=== PATIENT | male | born 1940 | race Caucasian/White ===

== ENCOUNTER 2016-09-04 01:39 | Observation (INO) | payer OTHER ==
[~2016-09-04] VITALS: Ht 167.6 cm; Wt 90.7 kg
--- NOTE | 2016-09-04 02:10 | ED CARDIAC/CP/PALPITATIONS ---
History of Present Illness General Chief Complaint: Palpitations Stated Complaint: PALPITATIONS Source: patient Exam Limitations: no limitations Vital Signs & Intake/Output Vital Signs & Intake/Output Vital Signs Date Time Temp Pulse Resp B/P B/P Pulse O2 O2 Flow FiO2 Mean Ox Delivery Rate 09/04 0713 98.8 71 18 125/81 96 09/04 0244 97.9 69 16 102/68 96 Nasal 2.0L Cannula 09/04 0227 97 Nasal 2.0L Cannula 09/04 0207 71 16 115/82 99 Nasal 2.0L Cannula 09/04 0205 160 09/04 0202 71 115/82 09/04 0158 165 16 132/88 96 Room Air 09/04 0140 99 Nasal 2.0L Cannula Allergies Coded Allergies: No Known Allergies (09/04/16) Triage Note: 75YO MALE PRESENTS W/CO PALPITATIONS SINCE 1600. DENIES ANY CP Triage Nurses Notes Reviewed? yes HPI: Patient presents for evaluation of intermittent rapid heart beat that has been going on for a number of months now. Patient states that the symptoms seem to be becoming more frequent and longer lasting. He states he typically simply goes to sleep and when he wakes up the rapid heartbeat is gone. Today the rapid heartbeat began about 4 PM this afternoon. Patient states he was at rest at time of onset. Seemed to resolve the rapid heartbeat. Past History Travel History Traveled to [place] past 21 day No Medical History Any Pertinent Medical History? see below for history Surgical History Surgical History: non-contributory Family History Hx Contributory? No Review of Systems Review of Systems Constitutional: Reports: no symptoms. EENTM: Reports: no symptoms. Respiratory: Reports: no symptoms. Cardiovascular: Reports: see HPI. GI: Reports: no symptoms. Genitourinary: Reports: no symptoms. Musculoskeletal: Reports: no symptoms. Skin: Reports: no symptoms. Neurological/Psychological: Reports: no symptoms. Hematologic/Endocrine: Reports: no symptoms. Immunologic/Allergic: Reports: no symptoms. All Other Systems: Reviewed and Negative Physical Exam Physical Exam Cardiovascular: SEE BELOW Comments: Gen.: Well-nourished, well-developed, no acute respiratory distress. Head: Normocephalic, atraumatic. Eyes: Normal inspection bilaterally Ears: Normal inspection bilaterally Nose: Normal inspection Throat/mouth : Moist mucosa Neck: Supple, full range of motion, no goiter Heart: Rapid Regular rate and rhythm, no murmurs rubs or gallops Lungs: Clear to auscultation bilaterally with normal air entry Chest: Nontender Back: Normal range of motion Abdomen: Soft, nontender, nondistended, normal bowel sounds Extremities: Normal range of motion grossly, equal radial pulses, no cyanosis clubbing or edema Neurologic: Cranial nerves grossly intact, speech is clear Skin: warm and dry Psychiatric: Calm, cooperative, no apparent delusions or hallucinations Core Measures ACS in differential dx? Yes ASA ordered for poss ACS? Yes-ordered Severe Sepsis Present: No Septic Shock Present: No Progress Differential Diagnosis: ELECTROLYTE ABNORMALITY, HYPOMAGNESEMIA, ACUTE mi/ACUTE CORONARY SYNDROME, HEART VALVE DISEASE Plan of Care: Orders Procedure Date/time Status Heart Healthy Diet 09/[address] in observation 09/04 07 Active Misc Message 09/04 0744 Active ED Holding Orders 09/04 0744 Active Vital Signs 09/04 0744 Active Code Status 09/04 0744 Active TROPONIN LEVEL 09/04 0630 Complete EKG 09/04 0630 Active THYROID STIMULATING HORMONE 09/04 0209 Complete TROPONIN LEVEL 09/04 0209 Complete MAGNESIUM 09/04 0209 Complete CBC WITHOUT DIFFERENTIAL 09/04 0209 Complete BASIC METABOLIC PANEL 09/04 0209 Complete EKG 09/04 0143 Active Current Medications Sig/Kboi Start time Last Medication Dose Stop Time Status Admin Aspirin 81 MG ONCE ONE 09/04 0745 UNVr (Aspirin) 09/04 0746 Laboratory Tests 09/04/16 0634: Troponin I 0.06 09/04/16 0220: Anion Gap 14, Estimated GFR 54 L, BUN/Creatinine Ratio 20.0, Glucose 119 H, Calcium 9.6, Magnesium 1.9, Troponin I 0.04, TSH 2.030, CBC w Diff NO MAN DIFF REQ, RBC 5.17, MCV 89.9, MCH 30.1, RDW 14.6 H, MPV 8.4, Gran % 65.7, Lymphocytes % 22.5, Monocytes % 8.9, Eosinophils % 2.5, Basophils % 0.4, Absolute Granulocytes 7.9 H, Absolute Lymphocytes 2.7, Absolute Monocytes 1.1 H, Absolute Eosinophils 0.3, Absolute Basophils 0, PUBS MCHC 33.5 Initial ED EKG: rate (160), SVT Repeat EKG: changed (NSR) Comments: 09/04/2016 3:15:15 AM Husam was treated with 2 individual doses of adenosine 6 mg. The initial dose broke the SVT into a normal sinus rhythm but it returned within seconds. A second dose of adenosine do not seem to be effective until 2- 3 minutes later when the patient broke into a normal sinus rhythm. He then went in and out of an SVT over the next few minutes so a dose of Lopressor 5 mg IV was administered. He has been in a sinus rhythm since. 09/04/2016 3:26:07 AM patient's case discussed with Dr. Ohara who feels that if the patient has a normal repeat EKG and troponin that he could be placed on Lopressor 25 mg P0 twice a day and follow-up in the office. 09/04/2016 7:39:51 AM Husam's repeat EKG shows flattening of the T waves laterally and his repeat troponin is now 0.06 (prior was 0.04). I have discussed this case with Dr. Ohara again who feels it would be prudent to place this patient in observation for additional EKGs and troponin determinations along with additional testing. Patient agrees. Departure Departure Disposition: STILL A PATIENT Condition: Stable Clinical Impression Primary Impression: SVT (supraventricular tachycardia) Secondary Impressions: Acute electrocardiogram changes Referrals: ABBI WALKER,JUDE Kaminski (PCP/Family) Departure Forms: Customer Survey General Discharge Information Observation Note Spoke With: LESLY WALKER PhD,HEBERT Villa Physician Advisor Notified: HUBER WALKER,SHANNAN Levin Place Patient In: Non-ED OBS Care Area Rationale for Observation: My rational for observation is as follows patient presented in an SVT that was refractory to adenosine. He has been treated with IV Lopressor with stabilization of his heart rate and maintenance of normal sinus rhythm. His most recent EKG shows flattening of the T waves laterally and his troponin, although still within the normal range, has increased. I feel this patient is at risk of acute coronary syndrome or valve disease. Given his advanced age and medical comorbidities I do not feel he is a good candidate for outpatient management at this time. I feel he is still at risk of intermittent SVT that could cause hypotension or chest pain I feel the compliance with outpatient treatment could also provoke SVT. He should have serial troponins and EKGs and echocardiogram should be considered along with cardiac catheterization and stress testing. Critical Care Note Critical Care Note Critical Care Time: 30-74 min
[2016-09-04 02:29] LABS: ABSOLUTE BASOPHIL COUNT 0 /CUMM (0.0-0.2); ABSOLUTE EOSINOPHIL COUNT 0.3 /CUMM (0.0-0.7); ABSOLUTE GRANULOCYTE CT 7.9 /CUMM (1.4-6.5); ABSOLUTE LYMPH COUNT 2.7 /CUMM (1.2-3.4); ABSOLUTE MONOCYTE COUNT 1.1 /CUMM (0.10-0.60); BASOPHIL % 0.4 % (0.0-2.0); EOSINOPHIL % 2.5 % (0-5); GRANULOCYTE % 65.7 % (42.2-75.2); HEMATOCRIT 46.5 % (42-52); MEAN CORPUSCULAR HGB 30.1 PG (27.0-31.0); MEAN CORPUSCULAR HGB CONC 33.5 G/DL (33.0-37.0); MEAN CORPUSCULAR VOLUME 89.9 FL (80.0-94.0); MEAN PLATELET VOLUME 8.4 FL (7.4-10.4); PLATELET COUNT 216 /CUMM (130-400); RBC DISTRIBUTION WIDTH 14.6 % (11.5-14.5); RED BLOOD CELL CT 5.17 /CUMM (4.70-6.10)
--- NOTE | 2016-09-04 03:34 | RADIOLOGY REPORT ---
EXAMINATION: XR PORTABLE CHEST CLINICAL INFORMATION: SVT COMPARISON: None TECHNIQUE: Portable frontal view of the chest was obtained. FINDINGS: The lungs are hypoinflated, which limits evaluation. No definite consolidation is seen. No evidence of pneumothorax, pleural effusion, or overt pulmonary edema. Cardiac size appears near the upper limits of normal though may be accentuated by low lung volumes. No acute osseous findings are seen. IMPRESSION: Cardiac size appears near the upper limits of normal, though may be accentuated by low lung volumes. No acute pulmonary findings identified.
[2016-09-04] MEDS ORDERED: POTASSIUM CHLO20 ME2 PO (08:33)
[2016-09-04] MEDS ORDERED: AMLODIPINE BESY10 M1 PO (08:34)
[2016-09-04] MEDS ORDERED: LISINOPRIL-HCT1 EAC1 PO (08:34)
[2016-09-04] MEDS ORDERED: FAMOTIDINE20 M1 PO (08:34)
[2016-09-04] MEDS ORDERED: TAMSULOSIN HCL0.4 M1 PO (08:35)
[2016-09-04] MEDS ORDERED: DAILY MULTIPLE1 EACH PO (08:35)
[2016-09-04] MEDS ORDERED: OMEGA 3-6-9 11200 MG PO (08:35)
--- NOTE | 2016-09-04 08:51 | History & Physical ---
General Information and HPI MD Statement: I have seen and personally examined TOYA BERMUDEZ and documented this H&P. The patient is a 75 year old M who presented with a patient stated chief complaint of [palpitations]. Source of Information: patient Exam Limitations: no limitations History of Present Illness: 75-year-old male with past medical history of HTN, HLP, BPH, prosctate cancer scheduled to undergo radiation tx on Mon09/07/16 presents to the ED with chief complaints of palpitations. According to the patient he has been experiencing intermittent episodes of palpitations his entire life and has been owrked up in the past, with echo's, Holter moniters, with work-up that has been unrevealing. States that these episodes usually occur once or twice a year and last for a few minutes, however at around 4:00pm yesrterday he was getting dressed when he felt palpitations, which continued throughout and so he decided to come to the ER. Denies fevers, chills, CP, nausea, vomiting, diaphoresis, but endorses feeling lightheaded. Denies LOC, seizure like activity, SOB, orthopnea, recent change in his BP medications, or changes in diet. Denies any swelling in lower extremities. Denies any alcohol use, and coes not smoke or do any recreational drugs. His review of systems is unremarkable. Denies any hsitory of early cardiac in the family. Of note he was diagnosed with prostate cancer about 3-4 years ago,a nd is being followed up by oncolgist at [facility]. States thta he had a biospy doen about 2 weeks ago, which was concerning a nd so he is scheduled to undergo radiation traetment on Mon09/07/[address] Live? at [facility]. F/U with Dr. Mario who is his urologist. Allergies/Medications Allergies: Coded Allergies: No Known Allergies (09/04/16) Home Med list Amlodipine Besylate 10 MG TABLET 1 TAB PO DAILY HEART (Reported) Famotidine 20 MG TABLET 1 TAB PO BID GI (Reported) Fish Oil/Borage/Flax/Om3,6,9#1 ([place] 3-6-9 1,200 MG Softgel) 1,200 MG CAPSULE 1 CAP PO DAILY SUPPLEMENT (Reported) Lisinopril/Hydrochlorothiazide (Lisinopril-Hctz 20-25 MG Tab) 20 MG-25 MG TABLET 1 TAB PO DAILY HEART (Reported) Multivitamin (Daily Multiple Vitamin) 1 EACH TABLET 1 TAB PO DAILY VITAMIN SUPPORT (Reported) Potassium Chloride 20 MEQ TAB.ER.PRT 1 TAB PO BID SUPPLEMENT (Reported) Tamsulosin HCl 0.4 MG CAP.ER.24H 1 CAP PO QPM PROSTATE (Reported) Past History Travel History Traveled to [place] past 21 day No Medical History Neurological: NONE EENT: NONE Cardiovascular: hypertension, hyperlipidemia Respiratory: NONE Gastrointestinal: NONE Hepatic: NONE Renal: NONE Musculoskeletal: NONE Psychiatric: NONE Endocrine: NONE Blood Disorders: NONE Cancer(s): prostate cancer Isolation History: Standard Surgical History Surgical History: non-contributory Past Family/Social History Family History Relations & Conditions if any FATHER FH: cancer SISTER FH: cancer MOTHER Relation not specified for: Cervical cancer Psychosocial History Smoking Status: Never Smoked ETOH Use: denies use Illicit Drug Use: denies illicit drug use Functional Ability ADLs Independent: dressing, eating, toileting, bathing. Ambulation: independent Review of Systems Review of Systems Constitutional: Reports: diaphoresis. Denies: chills, fever, weakness. EENTM: Denies: visual changes. Cardiovascular: Reports: palpitations. Denies: chest pain, orthopena, peripheral edema, syncope. Respiratory: Denies: cough, orthopnea, short of breath, sputum production, wheezing. GI: Denies: abdominal pain, diarrhea, nausea, vomiting. Genitourinary: Reports: frequency. Denies: dysuria, pain. Musculoskeletal: Reports: no symptoms. Neurological/Psychological: Denies: headache, numbness, tingling, tremors, unable to move lower ext, unable to move upper ext, weakness. Exam & Diagnostic Data Last 24 Hrs of Vital Signs/I&O Vital Signs Date Time Temp Pulse Resp B/P B/P Pulse O2 O2 Flow FiO2 Mean Ox Delivery Rate 09/04 0713 98.8 71 18 125/81 96 09/04 0244 97.9 69 16 102/68 96 Nasal 2.0L Cannula 09/04 0227 97 Nasal 2.0L Cannula 09/04 206 71 16 115/82 99 Nasal 2.0L Cannula 09/04 0205 160 09/04 0202 71 115/82 09/04 0158 165 16 132/88 96 Room Air 09/04 0140 99 Nasal 2.0L Cannula Intake & Output 09/04 1600 09/04 0800 09/04 0000 Intake Total 1000 Output Total Balance 1000 Intake, IV 1000 Patient 200 lb Weight Physical Exam General Appearance Alert, Oriented X3, Cooperative, No Acute Distress Skin Temp/Moisture Exam: Warm/Dry HEENT Atraumatic, PERRLA, EOMI, dry mucous membranes Neck Supple, No JVD, No thryomegaly, +2 Carotid Pulse wo Bruit, No LAD Cardiovascular Regular Rate, Normal S1, Normal S2, No Murmurs Lungs Clear to Auscultation, Normal Air Movement Abdomen Normal Bowel Sounds, Soft, No Tenderness Neurological Normal Speech, Strength at 5/5 X4 Ext, Normal Tone, Sensation Intact, Cranial Nerves 3-12 NL, Reflexes 2+ Extremities No Clubbing, No Cyanosis, Normal Pulses, No Tenderness/Swelling, trace b/l edema Vascular Normal Pulses, Pulses Symmetrical Last 24 Hrs of Labs/[place]: Laboratory Tests 09/04/16 0634: Troponin I 0.06 09/04/16 0220: Anion Gap 14, Estimated GFR 54 L, BUN/Creatinine Ratio 20.0, Glucose 119 H, Calcium 9.6, Magnesium 1.9, Troponin I 0.04, TSH 2.030, CBC w Diff NO MAN DIFF REQ, RBC 5.17, MCV 89.9, MCH 30.1, RDW 14.6 H, MPV 8.4, Gran % 65.7, Lymphocytes % 22.5, Monocytes % 8.9, Eosinophils % 2.5, Basophils % 0.4, Absolute Granulocytes 7.9 H, Absolute Lymphocytes 2.7, Absolute Monocytes 1.1 H, Absolute Eosinophils 0.3, Absolute Basophils 0, PUBS MCHC 33.5 Diagnostic Data EKG Results NSR HR: 88, normal axis, low voltage with Q wavews in inferior leads II, III, avF CXR Results FINDINGS: The lungs are hypoinflated, which limits evaluation. No definite consolidation is seen. No evidence of pneumothorax, pleural effusion, or overt pulmonary edema. Cardiac size appears near the upper limits of normal though may be accentuated by low lung volumes. No acute osseous findings are seen. IMPRESSION: Cardiac size appears near the upper limits of normal, though may be accentuated by low lung volumes. No acute pulmonary findings identifi Assessment/Plan Assessment: 75-year-old male with past medical history of HTN, HLP, BPH, prosctate cancer scheduled to undergo radiation tx on Mon09/07/16 presents to the ED with chief complaints of palpitations. Vitals at the time of admission blood pressure 132/88, respiratory rate 16, pulse 165, afebrile, saturating 96% on room air. Labs pertinent for leukocytosis with a white blood cell count of 12,000, and H&H of 15.6/46.5, normal MCV of 89.9 with a platelet count of 216,000. Serum chemistries revealed a sodium of 139, potassium of 3.6, normal bicarbonate of 26 , anion gap of 14, B1 16 with a creatinine of 1.3. Serum glucose is elevated to 119. Calcium and magnesium were within normal limits at 9.6 and 1.9. We'll set of troponin I was 0.04 with second 0.06 at TSH of 2.03. Chest x-ray was done which showed a normal cardiac size, attenuated low lung volumes, no acute pulmonary findings. In the ER he was found to be in SVT and received 6 mg of adenosine IV 2. The initial dose proton there is retained to normal sinus rhythm but he returned within seconds. Second dose did not seem to be effective on 2-3 minutes later after which patient broke into normal sinus rhythm. He again went into SVT over the next few minutes and Lopressor 5 mg IV was administered. His been in sinus rhythm since. At around 7:30 his repeat EKG showed flattening of the T waves laterally and repeat troponin went a little bit off from 0.04-0.06. Case was discussed with Dr. Ohara who agreed to place the patient in observation for initial EKG and troponins. Assessment and plan Place patient under observation on telemetry. #SVT - Responded to Lopressor 5mg IV x1 (failed Adneosine 6mg IV X2) - Currently rate controlled and in NSR at 75bpm - Start on Metoprolol 12.5mg BID # R/O ACS given flattening of T wave - Troponins trended 0.04-->0.06 Trend Troponins and EKG @12:00 F/U Echo Continue ASA 81 mg daily F/U lipid profiel in AM # JOHAN - Most likely pre-renal 2/2 dehydration? - Hydrate with IVF @75mls/hr - F/U BEP in AM - Avoid nephrotoxic agents - Holding HCTZ and Lisinopril - Diet Heart healthy - DVT prophylaxis - Heparin 5000IU TID SC Code Status - Full Code As Ranked By This Provider Problem List: 1. SVT (supraventricular tachycardia) Core Measures/Miscellaneous Acute Coronary Syndrome ACS Diagnosis: No Cerebrovascular Accident CVA/TIA Diagnosis: No Congestive Heart Failure CHF Diagnosis: No VTE (View Protocol) VTE Risk Factors: Age > 40 [facility] d/t: No contraindications No VTE Pharm Prophylaxis d/t: No contraindications VTE Diagnosis: No VTE Type: NONE VTE Confirmed by (Test): NONE Sepsis (View Protocol) Severe Sepsis Present: No Septic Shock Septic Shock Present: No Miscellaneous Documentation Attending Case Discussed With: LESLY WALKER PhD,HEBERT Villa Primary Care Physician: JUDE GO MD Patient sees these Specialists Level of Patient Care: Telemetry Resident Review Statement Resident Statement: admitted by resident
[2016-09-04 09:43] VITALS: BP 131/82
--- NOTE | 2016-09-04 15:07 | Cons- Cardiology ---
General Information and HPI Consulting Request Date of Consult: 09/04/16 Requested By: LESLY WALKER PhD,HEBERT Villa History of Present Illness: This patient is a 75 year old male with history of hypertension and longstanding history of intermittent palpitations that are usually self limiting. Yesterday this patient noted the sudden onset of rapid palpitations associated with lightheadedness that did not quickly resolve. In the ER he was noted to have an SVT that did break with adenosine but quickly returned. The recurrent dysrhythmia did improve after the patient was started on a beta raine. He ruled out for an UT and denies any chest discomfort or shortness of breath. Although palpitations are not new for this patient he does feel that these episodes are becoming more frequent. This patient also carries a history of prostate cancer and is scheduled for radiation therapy on September 07. He is followed at [facility] by Dr. Mario, his urologist, for prostate cancer. Allergies/Medications Allergies: Coded Allergies: No Known Allergies (09/04/16) Home Med List: Amlodipine Besylate 10 MG TABLET 1 TAB PO DAILY HEART (Reported) Famotidine 20 MG TABLET 1 TAB PO BID GI (Reported) Fish Oil/Borage/Flax/Om3,6,9#1 ([place] 3-6-9 1,200 MG Softgel) 1,200 MG CAPSULE 1 CAP PO DAILY SUPPLEMENT (Reported) Lisinopril/Hydrochlorothiazide (Lisinopril-Hctz 20-25 MG Tab) 20 MG-25 MG TABLET 1 TAB PO DAILY HEART (Reported) Multivitamin (Daily Multiple Vitamin) 1 EACH TABLET 1 TAB PO DAILY VITAMIN SUPPORT (Reported) Potassium Chloride 20 MEQ TAB.ER.PRT 1 TAB PO BID SUPPLEMENT (Reported) Tamsulosin HCl 0.4 MG CAP.ER.24H 1 CAP PO QPM PROSTATE (Reported) Review of Systems Review of Systems: A twelve point review of systems is unremarkable. Past History Travel History Traveled to [place] past 21 day No Medical History Blood Transfusion Hx: No Neurological: NONE EENT: NONE Cardiovascular: hypertension Respiratory: NONE Gastrointestinal: NONE Hepatic: NONE Renal: NONE Musculoskeletal: NONE Psychiatric: NONE Endocrine: NONE Blood Disorders: NONE Cancer(s): prostate cancer Surgical History Surgical History: knee replacement Family History Relations & Conditions If Any: FATHER FH: cancer SISTER FH: cancer MOTHER Relation not specified for: Cervical cancer Psychosocial History Where Do You Live? Home Smoking Status: Never Smoked ETOH Use: denies use, occasional use Illicit Drug Use: denies illicit drug use Functional Ability ADLs Independent: dressing, eating, toileting, bathing. Ambulation: independent Exam & Diagnostic Data Vital Signs and I&O Vital Signs Date Time Temp Pulse Resp B/P B/P Pulse O2 O2 Flow FiO2 Mean Ox Delivery Rate 09/04 0943 98.2 70 16 131/82 96 Room Air 09/04 0713 98.8 71 18 125/81 96 09/04 0244 97.9 69 16 102/68 96 Nasal 2.0L Cannula 09/04 0227 97 Nasal 2.0L Cannula 09/04 0207 71 16 115/82 99 Nasal 2.0L Cannula 09/04 0205 160 09/04 0202 71 115/82 09/04 0158 165 16 132/88 96 Room Air 09/04 0140 99 Nasal 2.0L Cannula Intake & Output 09/04 1600 09/04 0800 09/04 0000 09/03 1600 09/03 0800 09/03 0000 Intake Total 1000 Output Total Balance 1000 Intake, IV 1000 Patient 200 lb 200 lb Weight Physical Exam: General: WD/ WN male in NAD; alert and oriented x 3 HEENT: NC/ AT, PERRL, EOMI Heart: RRR w/o murmur Lungs: clear bilaterally Abdomen: soft, NT, +ve bowel sounds Extremities: no edema Diagnostic Data EKG Results sinus rhythm with old inferior UT Assessment/Plan Assessment/Plan * This patient is doing well. He had an SVT which is not a new issue for this patient although his episodes are becoming a bit more frequent. We will begin Lopressor 12.5mg BID and will follow the patient as an outpatient for recurrent bouts of SVT. If this remains a recurrent problem despite medical therapy then we will consider an EP evaluation for possible ablation. * This patient does have an abnormal ECG although he ruled out for an UT and has no chest discomfort. We will plan on an outpatient stress test and echocardiogram. Okay to discharge to home with follow up in the office in one week. Consult Acknowledgment - Thank you for your consult request.
--- NOTE | 2016-09-04 15:21 | Patient Discharge Instructions ---
Discharge Instructions General Discharge Information You were seen/treated for: - Supraventricular tachycardia Special Instructions: Please follow up with your primary care physician in one week. Please follow up with your commercial property administrator in one week for an outpatient stress test and echocardiogram. Please start Lisinopril 20mg daily from tomorrow 09/05/16 Diet Recommended Diet: Heart Healthy Activity Activity Self Limited: Yes Acute Coronary Syndrome Inclusion Criteria At DC or during hospital stay patient has or had the following: ACS DIAGNOSIS No Discharge Core Measures Meds if any: Prescribed or Continued at Discharge Meds if any: NOT Prescribed or Continued at Discharge Congestive Heart Failure Inclusion Criteria At DC or during hospital stay patient has or had the following: CHF DIAGNOSIS No Discharge Core Measures Meds if any: Prescribed or Continued at Discharge Meds if any: NOT Prescribed or Continued at Discharge Cerebrovascular accident Inclusion Criteria At DC or during hospital stay patient has or had the following: CVA/TIA Diagnosis No Discharge Core Measures Meds if any: Prescribed or Continued at Discharge Meds if any: NOT Prescribed or Continued at Discharge Venous thromboembolism Inclusion Criteria VTE Diagnosis No VTE Type NONE VTE Confirmed by (Test) NONE Discharge Core Measures - Per Current guidelines, there needs to be overlap - treatment for the first 5 days of Warfarin therapy. - If discharged on Warfarin prior to 5 days of - overlap therapy, the patient will need to be - assessed for post discharge needs including - *Post discharge parental anticoagulation - *Warfarin and/or parental anticoagulation education - *Follow up date to check INR post discharge At least 5 days overlap therapy as Inpatient No Meds if any: Prescribed or Continued at Discharge Note: Overlap Therapy is Warfarin and Anticoagulant Meds if any: NOT Prescribed or Continued at Discharge
[2016-09-04] MEDS ORDERED: LISINOPRIL20 M1 PO (15:22)
[2016-09-04] MEDS ORDERED: ATORVASTATIN CA80 M1 PO ×2 (15:22→15:25)
[2016-09-04] MEDS ORDERED: ASPIRIN81 M4 PO ×2 (15:22→15:25)
[2016-09-04] MEDS ORDERED: METOPROLOL TART25 M1 PO ×2 (15:22→15:25)
[2016-09-04 16:32] VITALS: BP 147/79
== END 2016-09-04 18:57 ==
LOC: ERH 01:39 → ERHI 07:44 → ENRESERV 08:28 → ENTRNSPT 08:44 → 1NO 09:33 → ENPENDDIS 15:32 → 1NO 18:57 → CMPTRNSPT 09-05 14:31
PROVIDERS: Emergency Medicine; ADMIT Internal Medicine Interventional Cardiology
DX: I47.1 Supraventricular tachycardia (principal); R94.31 Abnormal electrocardiogram [ECG] [EKG]; I10 Essential (primary) hypertension; N40.0 Benign prostatic hyperplasia without lower urinary tract symptoms; C61 Malignant neoplasm of prostate; E78.5 Hyperlipidemia, unspecified
CPT/HCPCS: 93005; 93010; 96374; 96375; 96376; 99291; G0378; J0153; J1644; J3490